=== PATIENT | female | born 1960 | race Two or more races ===

== ENCOUNTER 2024-10-14 13:01 | Emergency (ER) | payer MEDICAID ==
[~2024-10-14] VITALS: Ht 160 cm; Wt 62.0 kg
[2024-10-14 13:07] VITALS: BP 160/96; PULSE 98; RESP 16; TEMP 36.9; O2SAT 96
== END 2024-10-14 15:09 | disposition left against medical advice (07) ==
LOC: ER 13:01
DX: M79.18 Myalgia, other site (principal); R53.1 Weakness; Z53.21 Procedure and treatment not carried out due to patient leaving prior to being seen by health care provider